=== PATIENT | male | born 1985 | race Caucasian/White ===

== ENCOUNTER 2017-09-01 10:11 | Emergency (ER) | payer MEDICAID ==
[~2017-09-01] VITALS: Ht 177.8 cm; Wt 86.2 kg
[2017-09-01 10:42] VITALS: BP 135/85
[2017-09-01] MEDS ORDERED: KETOROLAC TROMETH 60MG/2ML VIAL IM ONE (11:15)
[2017-09-01] MEDS ORDERED: cefTRIAXone SOD 1,000 MG VL IM ONE (11:15)
== END 2017-09-01 11:43 | disposition home or self-care (01) ==
LOC: ER 10:11
DX: L03.211 Cellulitis of face (principal); K02.9 Dental caries, unspecified; F17.200 Nicotine dependence, unspecified, uncomplicated; F12.10 Cannabis abuse, uncomplicated; F15.10 Other stimulant abuse, uncomplicated
CPT/HCPCS: 96372; 99284; J0696; J1885

== ENCOUNTER 2018-05-14 10:14 | Emergency (ER) | payer MEDICAID ==
[~2018-05-14] VITALS: Ht 177.8 cm; Wt 83.9 kg
[2018-05-14 10:21] VITALS: BP 124/84
== END 2018-05-14 11:39 | disposition left against medical advice (07) ==
LOC: ER 10:14
DX: R07.81 Pleurodynia (principal); Z53.21 Procedure and treatment not carried out due to patient leaving prior to being seen by health care provider

== ENCOUNTER 2022-06-07 09:49 | Emergency (ER) | payer MEDICAID | END 2022-06-07 10:00 | disposition left against medical advice (07) | LOC: ER 09:49 | DX: Z00.00 Encounter for general adult medical examination without abnormal findings (principal); Z53.21 Procedure and treatment not carried out due to patient leaving prior to being seen by health care provider; Y09 Assault by unspecified means; Y93.89 Activity, other specified; Y92.89 Other specified places as the place of occurrence of the external cause; Y99.8 Other external cause status ==

== ENCOUNTER 2024-11-13 15:13 | Emergency (ER) | payer MEDICAID ==
[~2024-11-13] VITALS: Ht 175.3 cm; Wt 109.8 kg
[~2024-11-13 15:13] MED LIST: DIPH25TA54 PO; METH4PAK PO
[2024-11-13] MEDS: KETOROLAC TROMETH 60MG/2ML VIAL IM ONE (15:30)
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
[2024-11-13 16:01] LABS: Urine Bacteria None Seen /hpf (None Seen)
--- NOTE | 2024-11-13 16:03 | DVH ---
ULTRASOUND OF SCROTUM AND CONTENTS. INDICATION: Testicular pain and swelling COMPARISON: None TECHNIQUE: Multiple real-time grayscale sonographic and color and duplex Doppler images of the scrotu m and its contents were obtained. FINDINGS: RIGHT TESTICLE: Measures 3.9 x 2.6 x 2.7 cm. Right epididymis measures 13.4 mm LEFT TESTICLE: Measures 3.9 x 2.5 x 3.2 cm. Septated left hydrocele. Increased scrotal wall thickening measuring 2.2 cm. Both testicles demonstrate homogeneous echotexture without evidence of focal lesions. The right epididymal head measures 13.4 mm cm. The left epididymal head measures 10 mm cm. Subsequent color and duplex Doppler interrogation of the testes demonstrated symmetric normal vascula r flow to both testicles. No focal areas of hyperemia were seen. IMPRESSION: 1. Right testicle measures 3.9 cm long. Left testicle measures 3.9 cm long. 2. Right epididymis measures 13.4 mm ; left epididymis measures 10 mm. 3. Septated hydrocele on the left. Scrotal wall thickening measuring 2.2 cm.
[2024-11-13 16:07] VITALS: BP 128/69; PULSE 105; RESP 20; TEMP 97.2; O2SAT 97
[2024-11-13 16:10] LABS: Urine Blood Negative /uL (Negative); Urine Clarity Clear (Clear); Urine Color Yellow (Yellow); Urine Protein, UAD TRACE (Negative); Urine Specific Gravity 1.027 (1.001-1.035); Urine Sperm PRESENT /hpf (None Seen); Urine Squamous Epithelial Cell None Seen /hpf (<5); Urine Urobilinogen Normal (Negative); Urine WBC 1 /HPF (0-3)
[2024-11-13] MEDS ORDERED: TRAM50TA2 PO (16:38)
[2024-11-13] MEDS ORDERED: IBUP-1455 PO (16:38)
== END 2024-11-13 16:45 | disposition home or self-care (01) ==
LOC: ER 15:13
DX: N43.3 Hydrocele, unspecified (principal); F17.210 Nicotine dependence, cigarettes, uncomplicated; F15.90 Other stimulant use, unspecified, uncomplicated; Z79.899 Other long term (current) drug therapy
CPT/HCPCS: 76870; 81001; 96372; 99285; J1885

== ENCOUNTER 2025-08-02 08:10 | Emergency (ER) | payer MEDICAID ==
[~2025-08-02] VITALS: Ht 175.3 cm; Wt 103.0 kg
[~2025-08-02 08:10] MED LIST changes: +IBUP-1455 PO; +TRAM50TA2 PO
--- NOTE | 2025-08-02 09:50 | DVH ---
CHEST RADIOGRAPH Indication: R/o serious pathology Technique: Single frontal view of the chest was obtained COMPARISON: None FINDINGS: Lines and Tubes: None Lungs: Clear Pleura: No effusion. No pneumothorax. Cardiomediastinal contours: Unremarkable Bones: Unremarkable IMPRESSION: No acute disease.
[2025-08-02 09:56] LABS: Hematocrit 44.4 % (41.0-53.0); Hemoglobin 14.8 g/dL (13.5-17.5); Mean Corpuscular Hemoglobin 29.2 pg (28.0-32.0); Mean Corpuscular Volume 87.6 fL (80.0-100.0); Nucleated Red Blood Cells % 0.0 %
[2025-08-02 09:58] LABS: Chloride 106 mmol/L (98-107); Sodium 145 mmol/L (136-145)
[2025-08-02 09:59] LABS: Anion Gap 14 (5-15); Calcium 9.6 mg/dL (8.7-10.4); Carbon Dioxide 25 mmol/L (20-31)
[2025-08-02 10:04] LABS: BUN/Creatinine Ratio 14.6 (10.0-20.0); Blood Urea Nitrogen 18 mg/dL (9-23)
[2025-08-02 10:09] LABS: Glucose 112 mg/dL (74-106); Potassium 3.4 mmol/L (3.5-5.1)
--- NOTE | 2025-08-02 10:39 | ED.PDOC ---
Musculoskeletal HPI Comments This is a pleasant 40-year-old that presents with a muscle cramps x1 day. Reports he is experiencing muscle cramps in his bilateral hands possibly after the discontinuation of Suboxone 36 hours ago. Reports that his hands cramp suddenly with no specific pattern. The patient tried taking [id number] magnesium pills and eating bananas with some improvement. He has a history of methamphetamine use and was prescribed Suboxone for meth cravings while in custody at [facility] and reports he was on Suboxone for 14 days. Two weeks ago with the patient experienced chest pain while in custody but did not seek medical attention due to the inconvenience of being transported and chains. He does have a family history of heart attacks from his father's side. The patient is also requesting to be screen for hepatitis and HIV due to IV drug use. Chief Complaint: Upper Extremity Time Seen by MD: 08:20 Primary Care Provider: NONE Reviewed Notes: Nurses Notes, Medications, Allergies Allergies: Coded Allergies: NO KNOWN ALLERGIES (Unverified , 09/01/17) Home Meds Active Scripts Tramadol Hcl (Tramadol Hcl) 50 Mg Tab, 50 MG PO Q8HP PRN, #12 TAB Prov:WATSON BUSTOS PAC 11/13/ Ibuprofen Micronized (Ibuprofen) 800 Mg Tab, 800 MG PO Q8HP PRN, #20 TAB Prov:WATSON BUSTOS PAC 11/13/25 Diphenhydramine Hcl (Benadryl Allergy) 25 Mg Tab, 25 MG PO BID for 3 Days, #6 TAB Prov:HENRY GARDINER MD 09/02/24 Methylprednisolone (Medrol Dosepak) 4 Mg Neymar, 4 MG PO UD, #21 TAB UAD Prov:HENRY GARDINER MD 09/02/24 Information Source: Patient Mode of Arrival: Ambulatory Past Medical History PAST MEDICAL HISTORY: Denies Surgical History: Denies all surgeries Family History Family History: Reviewed,noncontributory to illness Social History Smoker: Cigarettes, Less Than 1 Pack/Day Alcohol: Denies ETOH Use Drugs: Marijuana, Methamphetamine Lives In: Home All Other Systems: Reviewed and Negative (per hpi) Physical Exam General Appearance: No Apparent Distress, Normal HEENT: Normal ENT Inspection, Pharynx Normal, TMs Normal Neck: Full Range of Motion, Non-Tender, Normal, Normal Inspection Respiratory: Chest Non-Tender, Lungs Clear, No Accessory Muscle Use, No Respiratory Distress, Normal Breath Sounds Cardiovascular: No JVD (e 10/28 having some lifting), No Murmur, No Gallop, Regular Rate/Rhythm Breast Exam: Deferred Gastrointestinal: No Organomegaly, Non Tender, No Pulsatile Mass, Normal Bowel Sounds, Soft Genitalia: Deferred Pelvic: Deferred Rectal: Deferred Extremities: No calf tenderness, Normal capillary refill, Normal inspection, Normal range of motion, Non-tender, No pedal edema Musculoskeletal : Apperance: Normal Neurologic: Alert, superintendent production II-XII nml as Tested, No Motor Deficits, Normal Affect, Normal Mood, No Sensory Deficits Cerebellar Function: Normal Reflexes: Normal Skin: Dry, Normal Color, Warm Lymphatic: No Adenopathy Was a procedure done? Was a procedure done?: No Differential Diagnosis EXT Differential Diagnosis: Other X-Ray, Labs, Meds, VS Vital Signs Date Time Temp Pulse Resp B/P (MAP) Pulse Ox O2 Delivery O2 Flow Rate FiO2 08/02/25 08:12 97.9 63 16 148/97 100 97.9 Lab Test 08/02/25 09:37 Range/Units White Blood Count 15.1 H 4.4-10.8 10^3/uL Red Blood Count 5.07 4.5-5.90 10^6/uL Hemoglobin 14.8 13.5-17.5 g/dL Hematocrit 44.4 41.0-53.0 % Mean Corpuscular Volume 87.6 80.0-100.0 fL Mean Corpuscular Hemoglobin 29.2 28.0-32.0 pg Mean Corpuscular Hemoglobin Concent 33.3 32.0-36.0 g/dL Red Cell Distribution Width 13.6 11.8-14.3 % Platelet Count 253 140-450 10^3/uL Mean Platelet Volume 9.8 6.9-10.8 fL Neutrophils (%) (Auto) 77.8 37.0-80.0 % Lymphocytes (%) (Auto) 14.1 10.0-50.0 % Monocytes (%) (Auto) 8.0 0.0-12.0 % Eosinophils (%) (Auto) 0.0 0.0-7.0 % Basophils (%) (Auto) 0.1 0.0-2.0 % Neutrophils # (Auto) 11.7 H 1.6-8.6 10 ^3/uL Lymphocytes # (Auto) 2.1 0.4-5.4 10 ^3/uL Monocytes # (Auto) 1.2 0-1.3 10 ^3/uL Eosinophils # (Auto) 0 0-0.8 10 ^3/uL Basophils # (Auto) 0 0-0.2 10 ^3/uL Nucleated Red Blood Cells 0.0 % Sodium Level 145 136-145 mmol/L Potassium Level 3.4 L 3.5-5.1 mmol/L Chloride Level 106 98-107 mmol/L Carbon Dioxide Level 25 20-31 mmol/L Anion Gap 14 5-15 Blood Urea Nitrogen 18 9-23 mg/dL Creatinine 1.23 0.700-1.30 mg/dL Glomerular Filtration Rate Calc 76 >90 mL/min BUN/Creatinine Ratio 14.6 10.0-20.0 Serum Glucose 112 H 74-106 mg/dL Calcium Level 9.6 8.7-10.4 mg/dL Troponin I High Sensitivity 20 </=54 ng/L Hepatitis B Surface Antigen Pending Hepatitis B Surface Antibody Pending Hepatitis C Antibody Pending HIV (1&2) Antibody Pending X-Ray, Labs, Meds, VS Comment Patient is stable for discharge at this time. External notes reviewed. Test results and diagnostic imaging interpreted. All diagnostic findings, discharge care, education and instructions provided Follow-up with PCP in 2 to 3 days Patient verbalized understanding and agreed to treatment plan Vital signs stable, afebrile, no acute distress noted Patient ambulatory with strong steady gait Advised to return precautions for any new or worsening symptoms, return to ER immediately for re-evaluation Patient is aware that the purpose of this visit was for an acute medical emergency requiring emergent stabilization. Chronic conditions, including malignancies have not been ruled out. Patient is instructed to follow up with PCP as directed and discharge instructions for continued care and workup. If unable to arrange follow-up, patient is to return to the emergency department for reassessment. Patient (parent or legal guardian if applicable) was given verbal and written discharge instructions and acknowledges understanding. Time of 1ST Reevaluation: 10:30 Reevaluation 1ST: Improved Patient Education/Counseling: Diagnosis, Treatment Family Education/Counseling: Diagnosis, Treatment Departure 1 Departure Time of Disposition: 10:39 Impression: Primary Impression: Musculoskeletal pain Disposition: 01 HOME / SELF CARE / HOMELESS Condition: Stable Discharged With: Self Critical Care Note Critical Care Time?: No Stability Stability form required: No Heart Score Heart Score: Heart Score Response (Comments) Value History N/A 0 EKG N/A 0 Age N/A 0 Risk Factors N/A 0 Troponin N/A 0 Total 0 LEROY BUSCH NP Aug 02, 2025 10:39
[2025-08-02 10:55] VITALS: BP 136/98; PULSE 78; RESP 17; TEMP 98.2; O2SAT 99
[2025-08-02 11:08] LABS: Hepatitis B Surface Antigen Negative (Negative)
== END 2025-08-02 10:58 | disposition home or self-care (01) ==
LOC: ER 08:10
DX: M79.18 Myalgia, other site (principal); R25.2 Cramp and spasm; F17.210 Nicotine dependence, cigarettes, uncomplicated
CPT/HCPCS: 36415; 71045; 80048; 84484; 85025; 86703; 86706; 86803; 87340

== ENCOUNTER 2025-08-14 11:21 | Inpatient (IN) | payer MEDICAID ==
[~2025-08-14] VITALS: Ht 172.7 cm; Wt 90.0 kg
--- NOTE | 2025-08-14 11:40 | ED.PDOC ---
HPI Allergic reaction HPI Comments 40 y.o male presents to the ED for an evaluation of an allergic reaction. Patient reports smoking methamphetamine earlier this morning and later developed facial swelling to the left side. Patient states taking a nap and when he woke up, ate some eggs and swelling across his face and lips. Patient did have some difficulty swallowing but denies any at this time. He mentions same reaction x 5 separate times after using methamphetamine but one episode was without substance use. He denies any medication use at this time. Additionally mentions using marijuana. He denies any cough, cold, runny nose, fever or chills. Chief Complaint: Allergic Reaction Time Seen by MD: 12:45 Primary Care Provider: NONE Reviewed Notes: Nurses Notes, Medications, Allergies Allergies: Coded Allergies: Cephalexin (Verified Allergy, Unknown, 08/14/25) Home Meds Active Scripts Tramadol Hcl (Tramadol Hcl) 50 Mg Tab, 50 MG PO Q8HP PRN, #12 TAB Prov:WATSON BUSTOS PAC 11/13/24 Ibuprofen Micronized (Ibuprofen) 800 Mg Tab, 800 MG PO Q8HP PRN, #20 TAB Prov:WATSON BUSTOS PAC 11/13/24 Diphenhydramine Hcl (Benadryl Allergy) 25 Mg Tab, 25 MG PO BID for 3 Days, #6 TAB Prov:HENRY GARDINER MD 09/02/24 Methylprednisolone (Medrol Dosepak) 4 Mg Neymar, 4 MG PO UD, #21 TAB UAD Prov:HENRY GARDINER MD 09/02/24 Information Source: Patient Mode of Arrival: Ambulatory Severity: Moderate Rash: None Pruritus: None Timing: Hours Duration: Since onset Location: Face Exposed to: Unknown Developed: Facial Swelling History of: None Modyifying Factors: None Associated Sign and Symptoms: Other Past Medical History PAST MEDICAL HISTORY: Denies Surgical History: Denies all surgeries Family History Family History: Reviewed,noncontributory to illness Social History Smoker: Cigarettes, Less Than 1 Pack/Day Alcohol: Denies ETOH Use Drugs: Marijuana, Methamphetamine Lives In: Home Constitutional: denies: chills, diaphoresis, fatigue, fever, malaise, sweats, weakness, others EENTM: denies: blurred vision, double vision, ear bleeding, ear discharge, ear drainage, ear pain, ear ringing, eye pain, eye redness, hearing loss, mouth pain, mouth swelling, nasal discharge, nose bleeding, nose congestion, nose pain, photophobia, tearing, throat pain, throat swelling, voice changes, others Respiratory: denies: cough, hemoptysis, orthopnea, SOB at rest, shortness of breath, SOB with excertion, stridor, wheezing, others Cardiovascular: denies: chest pain, dizzy spells, diaphoresis, Dyspnea on exertion, edema, irregular heart beat, left arm pain, lightheadedness, palpitations, PND, syncope, others Gastrointestinal: denies: abdomen distended, abdominal pain, blood streaked bowels, constipated, diarrhea, dysphagia, difficulty swallowing, hematemesis, melena, nausea, poor appetite, poor fluid intake, rectal bleeding, rectal pain, vomiting, others Genitourinary: denies: burning, dysuria, flank pain, frequency, hematuria, incontinence, penile discharge, penile sore, pain, testicle pain, testicle swelling, urgency, others Neurological: denies: dizziness, fainting, headache, left sided numbness, left sided weakness, numbness, paresthesia, pre-existing deficit, right sided numbness, right sided weakness, seizure, speech problems, tingling, tremors, weakness, others Musculoskeletal: denies: back pain, gout, joint pain, joint swelling, muscle pain, muscle stiffness, neck pain, others Integumetry: denies: bruises, change in color, change in hair/nails, dryness, laceration, lesions, lumps, rash, wounds, others Allergic/Immunocompromised: reports: others (facial swelling ); denies: Difficulty Healing, Frequent Infections, Hives, Itching Hematologic/Lymphatic: denies: anemia, blood clots, easy bleeding, easy bruising, swollen glands, others Endocrine: denies: excessive hunger, excessive sweating, excessive thirst, excessive urination, flushing, intolerance to cold, intolerance to heat, unexplained weight gain, unexplained weight loss, others Psychiatric: denies: anxiety, bipolar disorder, depression, hopeless, panic disorder, schizophrenia, sleepless, suicidal, others All Other Systems: Reviewed and Negative Physical Exam Exam Comments Full face swelling worse to the left face. Left cheek and left lips completely swollen. Right cheek very swollen including the entire jaw. Positive lip swelling. General Appearance: Severe Distress HEENT: Other (Full face swelling worse to the left face. Left cheek and left lips completely swollen. Right cheek very swollen including the entire jaw. Po sitive lip swelling. No tongue swelling) Neck: Full Range of Motion, Non-Tender, Normal, Normal Inspection Respiratory: No Respiratory Distress, Normal Breath Sounds Cardiovascular: Normal Peripheral Pulses, Tachycardia Breast Exam: Deferred Gastrointestinal: No Organomegaly, Non Tender, No Pulsatile Mass, Normal Bowel Sounds, Soft Genitalia: Deferred Pelvic: Deferred Rectal: Deferred Extremities: No calf tenderness, Normal capillary refill, Normal inspection, Normal range of motion, Non-tender, No pedal edema Musculoskeletal : Apperance: Normal Neurologic: Alert, No Motor Deficits, Normal Affect, Normal Mood, No Sensory Deficits Cerebellar Function: Normal Reflexes: Normal Skin: Dry, Normal Color, Warm Lymphatic: No Adenopathy Was a procedure done? Was a procedure done?: No Differential diagnosis (all) Differential Diagnosis: Anaphylaxis, Angioedema, Bronchospasm, Contact Dermatitis, Drug Reaction, Urticaria X-Ray, Labs, Meds, VS Vital Signs Date Time Temp Pulse Resp B/P (MAP) Pulse Ox O2 Delivery O2 Flow Rate FiO2 08/14/25 12:05 110 20 116/77 (90) 97 08/14/25 12:05 110 20 97 Room Air 08/14/25 11:27 98.0 113 18 122/80 97 98.0 Lab Test 08/14/25 13:10 Range/Units White Blood Count 9.3 4.4-10.8 10^3/uL Red Blood Count 4.72 4.5-5.90 10^6/uL Hemoglobin 14.2 13.5-17.5 g/dL Hematocrit 41.9 41.0-53.0 % Mean Corpuscular Volume 88.7 80.0-100.0 fL Mean Corpuscular Hemoglobin 30.1 28.0-32.0 pg Mean Corpuscular Hemoglobin Concent 33.9 32.0-36.0 g/dL Red Cell Distribution Width 14.3 11.8-14.3 % Platelet Count 269 140-450 10^3/uL Mean Platelet Volume 9.1 6.9-10.8 fL Neutrophils (%) (Auto) 70.1 37.0-80.0 % Lymphocytes (%) (Auto) 22.1 10.0-50.0 % Monocytes (%) (Auto) 6.4 0.0-12.0 % Eosinophils (%) (Auto) 1.1 0.0-7.0 % Basophils (%) (Auto) 0.3 0.0-2.0 % Neutrophils # (Auto) 6.6 1.6-8.6 10 ^3/uL Lymphocytes # (Auto) 2.1 0.4-5.4 10 ^3/uL Monocytes # (Auto) 0.6 0-1.3 10 ^3/uL Eosinophils # (Auto) 0.1 0-0.8 10 ^3/uL Basophils # (Auto) 0 0-0.2 10 ^3/uL Nucleated Red Blood Cells 0.1 % Sodium Level 142 136-145 mmol/L Potassium Level 3.6 3.5-5.1 mmol/L Chloride Level 113 H 98-107 mmol/L Carbon Dioxide Level 22 20-31 mmol/L Anion Gap 7 5-15 Blood Urea Nitrogen 9 9-23 mg/dL Creatinine 1.08 0.700-1.30 mg/dL Glomerular Filtration Rate Calc 89 >90 mL/min BUN/Creatinine Ratio 8.3 L 10.0-20.0 Serum Glucose 129 H 74-106 mg/dL Calcium Level 9.1 8.7-10.4 mg/dL Current Medications Medications (Trade) Dose Ordered Sig/Jenna Route Start Time Stop Time Status Last Admin Dexamethasone Sodium Phosphate (Decadron Injection) 10 mg ONCE ONCE IV 08/14/25 12:00 08/14/25 12:02 DC 08/14/25 12:13 Diphenhydramine HCl (Benadryl Injection) 50 mg ONCE ONCE IV 08/14/25 12:00 08/14/25 12:02 DC 08/14/25 12:13 Famotidine (Pepcid Injection) 40 mg ONCE ONCE IV 08/14/25 12:00 08/14/25 12:02 DC 08/14/25 12:13 Patient is seen immediately upon his arrival by myself. Nursing staff ap proached me regarding his significant swelling. At this time patient has a fullface swelling to the left side of his face and significant swelling to the right cheek and right lower face. Patient is tachycardic at a proximally 113. However blood pressure is stable. At this time he reports mild difficulty breathing only. There was lip swelling but there was no tongue swelling. At this time patient states he does not know what caused this. He states this is occurred some 5-6 times. Patient immediately given dexamethasone Benadryl and Pepcid IV. Patient currently not on any medications. He states he uses methamphetamine but no other medications that could be the cause of his symptoms today. He states this morning he woke up and it was most swollen and then he ate aches and became even more swollen. On re-evaluation of the patient at 12:50 p.m., swelling has decreased but con tinues to be very swollen still. At this time I believe patient would benefit from inpatient observation and admission. I have ordered a CBC BMP which are within normal limits.. Hospitalist team has been contacted for admission. Time of 1ST Reevaluation: 12:50 Reevaluation 1ST: Improved Patient Education/Counseling: Diagnosis, Treatment, Prognosis Family Education/Counseling: No Family Present SEPSIS Sepsis Screen Date sepsis recognized/suspect: Aug 14, 2025 Time Sepsis recognized/suspect: 1134 Recent Procedure: No On Antibiotic Therapy: No Respiratory Rate >20: No Heart Rate >90: Yes Temp<36 C (96.8 F) or >38.3 C: No SBP <90 or MAP <65 mmHG: No New Acute Mental Status Change: No Is the patient on CPAP, BIPAP,: No Vital Signs Date Time Temp Pulse Resp B/P (MAP) Pulse Ox O2 Delivery O2 Flow Rate FiO2 08/14/25 12:05 110 20 116/77 (90) 97 08/14/25 12:05 110 20 97 Room Air 08/14/25 11:27 98.0 113 18 122/80 97 98.0 Laboratory Tests Test 08/14/25 13:10 White Blood Count 9.3 10^3/uL (4.4-10.8) Medications Medications Dose Ordered Sig/Jenna Route Start Time Stop Time Status Last Admin Dose Admin Dexamethasone Sodium Phosphate 10 mg ONCE ONCE IV 08/14/25 12:00 08/14/25 12:02 DC 08/14/25 12:13 Diphenhydramine HCl 50 mg ONCE ONCE IV 08/14/25 12:00 08/14/25 12:02 DC 08/14/25 12:13 Famotidine 40 mg ONCE ONCE IV 08/14/25 12:00 08/14/25 12:02 DC 08/14/25 12:13 Departure 1 Departure Time of Disposition: 12:54 Impression: Primary Impression: Angio-edema Qualified Codes: T78.3XXA - Angioneurotic edema, initial encounter Additional Impression: Allergic reaction Qualified Codes: T78.40XA - Allergy, unspecified, initial encounter Disposition: ADMITTED INPATIENT Condition: Fair Discharged With: Self Critical Care Note Critical Care Time?: Yes (45 min-critical care time only) Critical care comment: Patient required immediate attention. Multiple re-evaluations concern for acute anaphylaxis and concern for immediate respiratory decline. Time spent re- evaluating the patient, speaking to nursing staff, managing the patient in his care, speaking to hospitalist team Stability Stability form required: No Heart Score Heart Score: Heart Score Response (Comments) Value History N/A 0 EKG N/A 0 Age N/A 0 Risk Factors N/A 0 Troponin N/A 0 Total 0 I personally scribed for KATIE SALINAS MD ([email or web address]) on 08/14/25 at 11:40. Electronically submitted by Ronda Bullock ([facility]). I personally scribed for KATIE SALINAS MD ([email or web address]) on 08/14/25 at 12:50. Electronically submitted by Ronda Bullock ([facility]). KATIE SALINAS MD Aug 14, 2025 11:40
[2025-08-14] MEDS: diphenhydrAMINE HCL 50 MG/1 ML VL IV ONE (12:13)
[2025-08-14] MEDS: FAMOTIDINE (10MG/ML) 2ML VL IV ONE (12:13)
[2025-08-14 13:28] LABS: Hematocrit 41.9 % (41.0-53.0); Hemoglobin 14.2 g/dL (13.5-17.5); Mean Corpuscular Hemoglobin 30.1 pg (28.0-32.0); Mean Corpuscular Volume 88.7 fL (80.0-100.0); Nucleated Red Blood Cells % 0.1 %
[2025-08-14 13:39] LABS: Potassium 3.6 mmol/L (3.5-5.1); Sodium 142 mmol/L (136-145)
[2025-08-14 13:40] LABS: Anion Gap 7 (5-15); Carbon Dioxide 22 mmol/L (20-31)
[2025-08-14 13:41] LABS: Calcium 9.1 mg/dL (8.7-10.4)
[2025-08-14 13:45] LABS: BUN/Creatinine Ratio 8.3 (10.0-20.0); Blood Urea Nitrogen 9 mg/dL (9-23)
[2025-08-14 13:57] LABS: Chloride 113 mmol/L (98-107); Glucose 129 mg/dL (74-106)
[2025-08-14 20:50] VITALS: BP 138/88; PULSE 122; RESP 20; TEMP 98; O2SAT 100
[2025-08-14] MEDS ORDERED: MORPHINE SULFATE INJ 2 MG/ml SYRG IV PRN (23:45)
[2025-08-14] MEDS ORDERED: NITROGLYCERIN 0.4 MG SL TAB SL PRN (23:45)
[2025-08-15] MEDS ORDERED: DOCUSATE SOD 100 MG CAP PO PRN (02:15)
[2025-08-15] MEDS ORDERED: ONDANSETRON HCL 4 MG/2 ML VIAL IV PRN (02:15)
[2025-08-15] MEDS ORDERED: ACETAMINOPHEN 325 MG TAB PO PRN (02:15)
[2025-08-15] MEDS ORDERED: diphenhydrAMINE HCL 50 MG/1 ML VL IV PRN (02:15)
[2025-08-15] MEDS ORDERED: SODIUM CHLORIDE 0.9% 1,000 ML IV SCH (02:15)
--- NOTE | 2025-08-15 02:16 | DVHHPRES ---
History of Present Illness Resident Creating Document: TABITHA HALE RESIDENT History of Present Illness The patient is a 40-year-old male with history of hepatitis C (treated), anxiety, IV methamphetamine use, and prior episodes of facial swelling, who presents to the ED with acute facial swelling and throat tightness concerning for allergic reaction with angioedema. He reports using IV methamphetamine around 3:30 AM today. He went home and slept. When he woke up around 9:00 AM, he noticed swelling involving the left cheek and left side of his lips. He then ate eggs, after which the swelling rapidly worsened, spreading to involve both lips, left cheek up toward the infraorbital area, and later the right cheek/lower face. He describes the swelling as tight, watery, mildly painful, and itchy over the face. He also reports mild throat tightness and mild dysphagia (able to swallow saliva but feels tight in the throat) and very mild chest tightness, but denies brianna shortness of breath, noisy breathing, wheezing, stridor, drooling, or inability to handle secretions. He denies rash elsewhere on the body, tongue swelling, hand/foot/genital swelling, and denies nausea, vomiting, abdominal pain, or diarrhea. No fever or chills. This is his 6th episode of similar facial swelling: * 5 episodes occurred in temporal association with methamphetamine use (within the same day). * 1 episode occurred during incarceration after receiving Suboxone (buprenorphinenaloxone). * He was admitted once previously for similar swelling but reports no prior intubation or ICU stay. * Symptoms previously improved with steroids and diphenhydramine. He reports a known allergy to Keflex (cephalexin) . He is not on any OUSMANE inhibitor, ARB, or other chronic medications. He occasionally uses tramadol, ibuprofen, Tylenol, and diphenhydramine for pain or symptoms, but no daily medications. On ED presentation, nursing staff noted marked left hemifacial swelling and significant swelling of the right cheek and lower face, with lip swelling but no tongue swelling. He was tachycardic to ~284711 bpm, normotensive (BP ~138/88 mmHg), afebrile, and saturating 100% on room air. He complained of mild throat tightness and chest tightness but could speak in full sentences without stridor. He was treated emergently with: * IV dexamethasone * IV diphenhydramine (Benadryl) * IV famotidine (Pepcid) Following treatment, he reports the facial swelling has improved significantly (down to about one-third of what it was), and the throat tightness is still present but slightly better. No new symptoms have developed. Given: * Recurrent angioedema episodes (x6), * Association with IV methamphetamine and Suboxone exposure, * Concurrent throat tightness and mild dysphagia, * Current need for ongoing serial airway exams and risk of progression to laryngeal edema/anaphylaxis, the patient is being admitted from the ED to inpatient medicine (telemetry/step- down level) for close airway monitoring, continued antihistamine/steroid therapy, evaluation for underlying angioedema (including possible drug-induced vs idiopathic vs hereditary vs food-triggered), and addiction and allergy/immunology consultation. Past Medical History * Hepatitis C virus infection treated with Harvoni; reports sustained virologic response (no current active HCV by history). * Anxiety disorder. * Recurrent allergic reaction/angioedema episodes (x6 by history). * No known asthma, eczema, autoimmune disease, thyroid disease, or hereditary angioedema diagnosis. Past Surgical History * Denies prior surgeries. Family History * No known family history of angioedema, anaphylaxis, or autoimmune disease. * No known hereditary angioedema in relatives by patient report. Past Social History * Lives with his mother. * Tobacco: ~ pack per day of cigarettes. * Illicit drugs: * IV methamphetamine use (episodic; last use at ~3:30 AM on day of admission). * Marijuana use (smoked). * Denies cocaine, heroin, or non-prescribed pills. * Alcohol: denies current ethanol use. * No occupational exposures clearly identified. Review of Systems Review of Systems * General: Denies fever, chills, night sweats, weight loss. * HEENT: +Facial swelling (bilateral cheeks, lips, L>R). +Throat tightness. +Mild facial itching. Denies tongue swelling, drooling, hoarseness, visual changes, ear pain, rhinorrhea, sinus pain. * Respiratory: Denies brianna shortness of breath, cough, wheezing, stridor, hemoptysis. * Cardiovascular: +Mild chest tightness; denies chest pain, palpitations, syncope. * GI: Denies nausea, vomiting, abdominal pain, diarrhea, melena, hematochezia. * : Denies dysuria, hematuria, flank pain, testicular pain or swelling currently. * Skin: Denies generalized rash or hives; itching localized to face. * Neuro: Denies headache, focal weakness, numbness, confusion. * Psych: Admits to history of anxiety; denies current suicidal ideation or hallucinations. * MSK: Denies joint swelling or myalgias. * Endocrine: Denies polyuria, polydipsia, heat or cold intolerance. * Heme/Onc: Denies easy bruising, bleeding, or known malignancy. * Allergic/Immunologic: Recurrent facial swelling episodes associated with meth and once with Suboxone; known Keflex allergy. Allergies: Coded Allergies: Cephalexin (Verified Allergy, Unknown, 08/14/25) Exam Vital Signs Vital Signs Date Time Temp Pulse Resp B/P (MAP) Pulse Ox O2 Delivery O2 Flow Rate FiO2 08/14/25 20:50 98.0 122 20 138/88 (105) 100 98.0 08/14/25 12:05 Room Air Exam General: Awake, alert, oriented x3, anxious but cooperative, speaking in full sentences, mild discomfort due to facial tightness; no acute respiratory distress. HEENT: * Head/Face: Notable left hemifacial swelling extending from perioral to infraorbital region, and moderate swelling over right cheek and lower face, somewhat improved compared to ED arrival by patient report. Mild overlying erythema; no warmth, no fluctuance; non-tender to palpation, feels tight to patient. * Lips: Bilateral lip edema, more pronounced on left; no ulcerations, no cyanosis. * Oral cavity: No tongue swelling, mucosa moist, no oral lesions, no pooling of secretions. Uvula midline, no obvious uvular edema, posterior oropharynx patent without exudate. * Throat: Patient reports mild tightness, but can swallow secretions; no drooling. * Eyes: No conjunctival injection or chemosis; no periorbital ecchymosis. * Ears/Nose: External ears normal. Nasal passages patent; no discharge. Neck: Supple, trachea midline, no stridor, no anterior neck swelling, no submandibular [id number] elevation, no cervical or submandibular lymphadenopathy, no tenderness or fluctuance. Full ROM without pain. Respiratory: Breathing unlabored. Lungs clear to auscultation bilaterally; no wheezes, rales, rhonchi, or stridor. No use of accessory muscles. Cardiovascular Tachycardic, regular rhythm, no murmurs, rubs, or gallops. Peripheral pulses 2+ bilaterally. No peripheral edema. Capillary refill <2 seconds. Abdomen: Soft, non-distended, non-tender. No guarding or rebound. Bowel sounds present. Extremities: No edema, no rash, no urticaria, no tenderness. Skin: Warm, dry. Facial area with edema as above; no generalized rash, urticaria, or flushing on trunk or extremities. Neurologic: Alert and oriented, moves all extremities spontaneously, cranial nerves IIXII grossly intact, no focal deficits. Psychiatric: Appropriate affect, anxious but logical and coherent, good insight into illness. Denies suicidal ideation. Labs/Xrays Labs Test 08/14/25 13:10 Range/Units White Blood Count 9.3 4.4-10.8 10^3/uL Red Blood Count 4.72 4.5-5.90 10^6/uL Hemoglobin 14.2 13.5-17.5 g/dL Hematocrit 41.9 41.0-53.0 % Mean Corpuscular Volume 88.7 80.0-100.0 fL Mean Corpuscular Hemoglobin 30.1 28.0-32.0 pg Mean Corpuscular Hemoglobin Concent 33.9 32.0-36.0 g/dL Red Cell Distribution Width 14.3 11.8-14.3 % Platelet Count 269 140-450 10^3/uL Mean Platelet Volume 9.1 6.9-10.8 fL Neutrophils (%) (Auto) 70.1 37.0-80.0 % Lymphocytes (%) (Auto) 22.1 10.0-50.0 % Monocytes (%) (Auto) 6.4 0.0-12.0 % Eosinophils (%) (Auto) 1.1 0.0-7.0 % Basophils (%) (Auto) 0.3 0.0-2.0 % Neutrophils # (Auto) 6.6 1.6-8.6 10 ^3/uL Lymphocytes # (Auto) 2.1 0.4-5.4 10 ^3/uL Monocytes # (Auto) 0.6 0-1.3 10 ^3/uL Eosinophils # (Auto) 0.1 0-0.8 10 ^3/uL Basophils # (Auto) 0 0-0.2 10 ^3/uL Nucleated Red Blood Cells 0.1 % Sodium Level 142 136-145 mmol/L Potassium Level 3.6 3.5-5.1 mmol/L Chloride Level 113 H 98-107 mmol/L Carbon Dioxide Level 22 20-31 mmol/L Anion Gap 7 5-15 Blood Urea Nitrogen 9 9-23 mg/dL Creatinine 1.08 0.700-1.30 mg/dL Glomerular Filtration Rate Calc 89 >90 mL/min BUN/Creatinine Ratio 8.3 L 10.0-20.0 Serum Glucose 129 H 74-106 mg/dL Calcium Level 9.1 8.7-10.4 mg/dL SEPSIS Sepsis Screen Date sepsis recognized/suspect: Aug 14, 2025 Time Sepsis recognized/suspect: 2050 Recent Procedure: No On Antibiotic Therapy: No Respiratory Rate >20: No Heart Rate >90: Yes Temp<36 C (96.8 F) or >38.3 C: No SBP <90 or MAP <65 mmHG: No New Acute Mental Status Change: No Is the patient on CPAP, BIPAP,: No Physician Orders Admit (08/14/25 23:37) Patient Condition (08/14/25 23:37) Oxygen By Nasal Cannula (08/14/25 23:37) Code Status (08/15/25 02:02) 0.9% Ns 1000 Ml (08/15/25 02:15) Oxygen Per Hour (08/15/25 02:02) Ondansetron Hcl (Zofran) (08/15/25 02:15) Docusate Sodium Capsule (Colace Capsule) (08/15/25 02:15) Enoxaparin Sodium (Lovenox) (08/15/25 10:00) Complete Blood Count (08/16/25 04:00) Comprehensive Metabolic Panel (08/16/25 04:00) Npo (Nothing By Mouth) Diet (08/15/25 Breakfast) Condition: Unstable (08/15/25 02:02) Acetaminophen Tablet (Tylenol Tablet) (08/15/25 02:15) Diphenhydramine Injection (Benadryl Inje (08/15/25 02:15) Famotidine Injection (Pepcid Injection) (08/15/25 10:00) Dexamethasone Injection (Decadron Inject (08/15/25 10:00) Epinephrine Hcl Injection (08/15/25 02:15) Complement C4 (08/15/25 02:02) C1 Esterase Inhibitor (08/15/25 02:02) Vital Signs Date Time Temp Pulse Resp B/P (MAP) Pulse Ox O2 Delivery O2 Flow Rate FiO2 08/14/25 20:50 98.0 122 20 138/88 (105) 100 98.0 Assessment/Plan Assessment/Plan Assessment Anaphylaxis with facial angioedema and upper airway involvement, likely drug- induced (IV methamphetamine) * Recurrent facial and lip edema (x6 episodes). * Temporal relationship with IV methamphetamine (most episodes) and once with Suboxone; * Symptoms of throat tightness and mild dysphagia, mild chest tightness. * Objective facial and lip edema on exam; no tongue swelling or stridor; normal SpO?. Methamphetamine use disorder, severe, with IV use (chronic) * Active IV meth use; likely contributing trigger for allergic episodes and increasing risk for infectious and cardiovascular complications. * Important CC-level addiction diagnosis for risk stratification and resource utilization. Marijuana use (cannabis use disorder, ) Tobacco use disorder ( pack per day) History of Hepatitis C treated , reported sustained virologic response (resolved infection) Anxiety disorder Mild stress hyperglycemia (glucose 129 mg/dL) not diagnostic of diabetes; to be monitored. Past hydrocele / scrotal wall thickening / epididymal changes (remote ultrasound, currently asymptomatic) chronic, no active issue. Plan 1. Acute allergic reaction with facial angioedema and mild upper airway involvement * Level of care / disposition: * Admit to inpatient medicine with telemetry / step-down level (not ICU) for frequent airway assessments, continuous pulse oximetry, and rapid access to epinephrine and airway support if symptoms worsen. * Airway monitoring: * Continuous pulse oximetry. * q24 hour nursing airway checks (voice changes, drooling, inability to swallow, tongue swelling, use of accessory muscles, stridor). * Low threshold to escalate to ICU/Anesthesia/ENT if: * Progressive swelling, new tongue or cqeyf-sj-qyhah edema, * Stridor, respiratory distress, * Worsening dysphagia or inability to handle secretions. * Medications (initial inpatient orders): * Continue H1 antihistamine: * IV/PO diphenhydramine 2550 mg q6h for first 24 hours, then transition to non-sedating oral H1 (e.g., cetirizine 10 mg daily) as tolerated. * Continue H2 megan: * IV famotidine 20 mg q12h, transition to PO when tolerating. * Continue steroid: * Dexamethasone 10 mg IV q24h x 23 doses (or alternative: methylprednisolone 4060 mg IV q812h per local practice, then taper to PO). * Epinephrine PRN: * Epinephrine 0.3 mg IM (1:1000) PRN for any signs of progression to anaphylaxis: increased throat tightness, tongue swelling, stridor, hypotension, or respiratory distress. Nursing to notify MD STAT. * Diet: * Start with regular diet as tolerated; * Ensure able to swallow; if dysphagia worsens, consider NPO status and escalate level of care. * Labs / diagnostic evaluation: * Repeat CBC and CMP in the morning to monitor metabolic status. * C4 complement level and C1 esterase inhibitor level/function * Consults: * Allergy/Immunology consult (inpatient if available or expedited outpatient) for evaluation of: * Recurrent angioedema, * Possible drug-induced vs idiopathic vs hereditary angioedema, * ENT consult PRN if any concern arises for laryngeal edema or need for airway evaluation. * Education: * Counseled patient that recurrent episodes are potentially life- threatening; must avoid methamphetamine, 2. Methamphetamine use disorder, severe, IV use * Discussed risks of recurrent allergic reactions, infections, endocarditis, and cardiovascular events. * Screening for other infections/risk factors done (HIV, hepatitis panel negative . 3. Marijuana use & Tobacco use disorder * Brief counseling on smoking cessation and lung health; document tobacco use disorder. * Offered nicotine replacement therapy (patch/gum/lozenge) * Provided resources for outpatient smoking cessation program. 4. History of Hepatitis C (treated), Hepatitis A & B immune * No acute management needed during this admission. * Verify most recent LFTs on CMP; if abnormal, consider further workup. * Document as resolved chronic viral infection with prior treatment; note Hep A/B immunity as protective. 5. Anxiety disorder * Continue supportive care; validate symptoms; reassure while monitoring objective airway signs. 6. mild stress hyperglycemia Glucose 129 mg/dL: Non-fasting, mild; monitor. No evidence of diabetes at this time. Prophylaxis & Supportive Measures 1. VTE Prophylaxis: * Start Enoxaparin 40 mg SQ daily * Encourage early ambulation. 2. GI Prophylaxis: * Not strictly required in low-risk patient, but can continue famotidine, which also serves allergy management role. 3. Fall Precautions: * Given potential sedation from diphenhydramine/steroids and possible epinephrine, implement fall precautions, bed in low position, call light within reach. 4. Aspiration / Airway Precautions: * Head of bed elevated 30. * Monitor swallowing; if worsening dysphagia or drooling occurs, make NPO and escalate care. Case discussed in detail with the attending physician, including the clinical presentation, diagnostic workup, and comprehensive management plan. The patient was present for the discussion and demonstrated understanding of his condition and the proposed plan. Patient verbally consented to hospital admission and agreed to the outlined evaluation and treatment strategies, including imaging, labs, medication initiation, specialist consultations, and supportive care. Plan discussed with: Patient My Orders Orders - TABITHA HALE RESIDENT Procedure Category Date Status Time Admit ADMIT 08/14/25 Transmitted 23:37 Patient Condition ORDERS 08/14/25 Transmitted 23:37 Oxygen By Nasal RT 08/14/25 Transmitted Cannula 23:37 Code Status CODE 08/15/25 Transmitted 02:02 0.9% Ns 1000 Ml PHA 08/15/25 Transmitted 02:15 Oxygen Per Hour RT 08/15/25 Transmitted 02:02 Ondansetron Hcl PHA 08/15/25 Transmitted (Zofran) 02:15 Docusate Sodium PHA 08/15/25 Transmitted Capsule (Colace 02:15 Enoxaparin Sodium PHA 08/15/25 Transmitted (Lovenox) 10:00 Complete Blood Count LAB 08/16/25 Verified 04:00 Comprehensive LAB 08/16/25 Verified Metabolic Panel 04:00 Npo (Nothing By DIET 08/15/25 Transmitted Mouth) Diet Breakfast Condition: Unstable STACY 08/15/25 Transmitted 02:02 Acetaminophen Tablet PHA 08/15/25 Transmitted (Tylenol Tablet) 02:15 Diphenhydramine PHA 08/15/25 Transmitted Injection (Benadryl 02:15 Famotidine Injection PHA 08/15/25 Transmitted (Pepcid Injection) 10:00 Dexamethasone PHA 08/15/25 Transmitted Injection (Decadron 10:00 Epinephrine Hcl PHA 08/15/25 Transmitted Injection 02:15 Complement C4 LAB 08/15/25 Transmitted 02:02 C1 Esterase Inhibitor LAB 08/15/25 Transmitted 02:02 Date of Service: Aug 14, 2025 Billing Provider: GINA REAL MD Common Visit Codes: 54225-[id number] INP/OBS CARE (HIGH) Secondary Visit Codes: [id number] CARE PLAN 30 MINUTES TABITHA HALE RESIDENT Aug 15, 2025 02:16
[2025-08-15] MEDS ORDERED: FAMOTIDINE (10MG/ML) 2ML VL IV SCH (10:00)
[2025-08-15] MEDS ORDERED: ENOXAPARIN SOD 40 MG/0.4 ML SYRINGE SC SCH (10:00)
--- NOTE | 2025-08-15 11:01 | DVHDSRES ---
Discharge Summary Date of Admission Resident Creating Document: TABITHA HALE LAUREN RESIDENT Aug 14, 2025 at 23:37 Date of Discharge: Aug 15, 2025 Admitting Diagnosis Anaphylaxis with facial angioedema and upper airway involvement, likely drug- induced (IV methamphetamine) POA Labs/Diagnostic Data: Laboratory Results Test 08/14/25 13:10 White Blood Count 9.3 10^3/uL (4.4-10.8) Red Blood Count 4.72 10^6/uL (4.5-5.90) Hemoglobin 14.2 g/dL (13.5-17.5) Hematocrit 41.9 % (41.0-53.0) Mean Corpuscular Volume 88.7 fL (80.0-100.0) Mean Corpuscular Hemoglobin 30.1 pg (28.0-32.0) Mean Corpuscular Hemoglobin Concent 33.9 g/dL (32.0-36.0) Red Cell Distribution Width 14.3 % (11.8-14.3) Platelet Count 269 10^3/uL (140-450) Mean Platelet Volume 9.1 fL (6.9-10.8) Neutrophils (%) (Auto) 70.1 % (37.0-80.0) Lymphocytes (%) (Auto) 22.1 % (10.0-50.0) Monocytes (%) (Auto) 6.4 % (0.0-12.0) Eosinophils (%) (Auto) 1.1 % (0.0-7.0) Basophils (%) (Auto) 0.3 % (0.0-2.0) Neutrophils # (Auto) 6.6 10 ^3/uL (1.6-8.6) Lymphocytes # (Auto) 2.1 10 ^3/uL (0.4-5.4) Monocytes # (Auto) 0.6 10 ^3/uL (0-1.3) Eosinophils # (Auto) 0.1 10 ^3/uL (0-0.8) Basophils # (Auto) 0 10 ^3/uL (0-0.2) Nucleated Red Blood Cells 0.1 % Sodium Level 142 mmol/L (136-145) Potassium Level 3.6 mmol/L (3.5-5.1) Chloride Level 113 mmol/L (98-107) Carbon Dioxide Level 22 mmol/L (20-31) Anion Gap 7 (5-15) Blood Urea Nitrogen 9 mg/dL (9-23) Creatinine 1.08 mg/dL (0.700-1.30) Glomerular Filtration Rate Calc 89 mL/min (>90) BUN/Creatinine Ratio 8.3 (10.0-20.0) Serum Glucose 129 mg/dL (74-106) Calcium Level 9.1 mg/dL (8.7-10.4) Other Laboratory Tests 08/14/25 13:10 Brief Hx & Hospital Course: The patient is a 40-year-old male with history of hepatitis C (treated), anxiety, IV methamphetamine use, and prior episodes of facial swelling, who presents to the ED with acute facial swelling and throat tightness concerning for allergic reaction with angioedema. He reports using IV methamphetamine around 3:30 AM today. He went home and slept. When he woke up around 9:00 AM, he noticed swelling involving the left cheek and left side of his lips. He then ate eggs, after which the swelling rapidly worsened, spreading to involve both lips, left cheek up toward the infraorbital area, and later the right cheek/lower face. He describes the swelling as tight, watery, mildly painful, and itchy over the face. He also reports mild throat tightness and mild dysphagia (able to swallow saliva but feels tight in the throat) and very mild chest tightness, but denies brianna shortness of breath, noisy breathing, wheezing, stridor, drooling, or inability to handle secretions. He denies rash elsewhere on the body, tongue swelling, hand/foot/genital swelling, and denies nausea, vomiting, abdominal pain, or diarrhea. No fever or chills. This is his 6th episode of similar facial swelling: * 5 episodes occurred in temporal association with methamphetamine use (within the same day). * 1 episode occurred during incarceration after receiving Suboxone (buprenorphinenaloxone). * He was admitted once previously for similar swelling but reports no prior intubation or ICU stay. * Symptoms previously improved with steroids and diphenhydramine. He reports a known allergy to Keflex (cephalexin) . He is not on any OUSMANE inhibitor, ARB, or other chronic medications. He occasionally uses tramadol, ibuprofen, Tylenol, and diphenhydramine for pain or symptoms, but no daily medications. On ED presentation, nursing staff noted marked left hemifacial swelling and significant swelling of the right cheek and lower face, with lip swelling but no tongue swelling. He was tachycardic to ~609772 bpm, normotensive (BP ~138/88 mmHg), afebrile, and saturating 100% on room air. He complained of mild throat tightness and chest tightness but could speak in full sentences without stridor. He was treated emergently with: * IV dexamethasone * IV diphenhydramine (Benadryl) * IV famotidine (Pepcid) Following treatment, he reports the facial swelling has improved significantly (down to about one-third of what it was), and the throat tightness is still present but slightly better. No new symptoms have developed. Given: * Recurrent angioedema episodes (x6), * Association with IV methamphetamine and Suboxone exposure, * Concurrent throat tightness and mild dysphagia, * Current need for ongoing serial airway exams and risk of progression to laryngeal edema/anaphylaxis, the patient is being admitted from the ED to inpatient medicine (telemetry/step- down level) for close airway monitoring, continued antihistamine/steroid therapy, evaluation for underlying angioedema (including possible drug-induced vs idiopathic vs hereditary vs food-triggered), and addiction and allergy/immunology consultation. Patient was diagnosed with Anaphylaxis with facial angioedema and upper airway involvement likely drug-induced (IV methamphetamine),Methamphetamine use disorder, severe, with IV use (chronic) for which patient was still undergoing evaluation but despite explaining patient wants to leave AMA. Patient was advised about risks versus benefits, patient may have verbalized understanding despite of attempts patient left AMA. Condition at Discharge: Undetermined Final Diagnosis/Problems List Anaphylaxis with facial angioedema and upper airway involvement, likely drug-induced (IV methamphetamine) POA * Recurrent facial and lip edema (x6 episodes). * Temporal relationship with IV methamphetamine (most episodes) and once with Suboxone; * Symptoms of throat tightness and mild dysphagia, mild chest tightness. * Objective facial and lip edema on exam; no tongue swelling or stridor; normal SpO?. Methamphetamine use disorder, severe, with IV use (chronic) POA * Active IV meth use; likely contributing trigger for allergic episodes and increasing risk for infectious and cardiovascular complications. * Important CC-level addiction diagnosis for risk stratification and resource utilization. Marijuana use (cannabis use disorder, ) POA Tobacco use disorder ( pack per day) POA History of Hepatitis C treated , reported sustained virologic response (resolved infection) Anxiety disorder POA Mild stress hyperglycemia (glucose 129 mg/dL) not diagnostic of diabetes; to be monitored. POA Past hydrocele / scrotal wall thickening / epididymal changes (remote ultrasound, currently asymptomatic) chronic, no active issue. Discharge Disposition: AMA Discharge Instruct/Medications Scheduled Diphenhydramine Hcl (Benadryl Allergy), 25 MG PO BID Methylprednisolone (Medrol Dosepak), 4 MG PO UD Scheduled PRN Ibuprofen Micronized (Ibuprofen), 800 MG PO Q8HP PRN Tramadol Hcl (Tramadol Hcl), 50 MG PO Q8HP PRN Discharge Statement: "Patient was advised to return to the ER or call 911 if any headaches, dizziness, shortness of breath, chest pain, abdominal pain, bleeding, fevers, or worsening of medical condition. Patient was counseled about treatment plan, medications, possible side effects, patientverbalized understanding. All questions were answered to the best of my ability. This discharge took greater then 30 minutes in planning, reviewing documentation, counseling the patient, and discussing with other team members." ASSESSMENT ASSESSMENT Hospital Course The patient is a 40-year-old male with history of hepatitis C (treated), anxiety, IV methamphetamine use, and prior episodes of facial swelling, who presents to the ED with acute facial swelling and throat tightness concerning for allergic reaction with angioedema. He reports using IV methamphetamine around 3:30 AM today. He went home and slept. When he woke up around 9:00 AM, he noticed swelling involving the left cheek and left side of his lips. He then ate eggs, after which the swelling rapidly worsened, spreading to involve both lips, left cheek up toward the infraorbital area, and later the right cheek/lower face. He describes the swelling as tight, watery, mildly painful, and itchy over the face. He also reports mild throat tightness and mild dysphagia (able to swallow saliva but feels tight in the throat) and very mild chest tightness, but denies brianna shortness of breath, noisy breathing, wheezing, stridor, drooling, or inability to handle secretions. He denies rash elsewhere on the body, tongue swelling, hand/foot/genital swelling, and denies nausea, vomiting, abdominal pain, or diarrhea. No fever or chills. This is his 6th episode of similar facial swelling: * 5 episodes occurred in temporal association with methamphetamine use (within the same day). * 1 episode occurred during incarceration after receiving Suboxone (buprenorphinenaloxone). * He was admitted once previously for similar swelling but reports no prior intubation or ICU stay. * Symptoms previously improved with steroids and diphenhydramine. He reports a known allergy to Keflex (cephalexin) . He is not on any OUSMANE inhibitor, ARB, or other chronic medications. He occasionally uses tramadol, ibuprofen, Tylenol, and diphenhydramine for pain or symptoms, but no daily medications. On ED presentation, nursing staff noted marked left hemifacial swelling and significant swelling of the right cheek and lower face, with lip swelling but no tongue swelling. He was tachycardic to ~262977 bpm, normotensive (BP ~138/88 mmHg), afebrile, and saturating 100% on room air. He complained of mild throat tightness and chest tightness but could speak in full sentences without stridor. He was treated emergently with: * IV dexamethasone * IV diphenhydramine (Benadryl) * IV famotidine (Pepcid) Following treatment, he reports the facial swelling has improved significantly (down to about one-third of what it was), and the throat tightness is still present but slightly better. No new symptoms have developed. Given: * Recurrent angioedema episodes (x6), * Association with IV methamphetamine and Suboxone exposure, * Concurrent throat tightness and mild dysphagia, * Current need for ongoing serial airway exams and risk of progression to laryngeal edema/anaphylaxis, the patient is being admitted from the ED to inpatient medicine (telemetry/step- down level) for close airway monitoring, continued antihistamine/steroid therapy, evaluation for underlying angioedema (including possible drug-induced vs idiopathic vs hereditary vs food-triggered), and addiction and allergy/immunology consultation. Patient was diagnosed with Anaphylaxis with facial angioedema and upper airway involvement likely drug-induced (IV methamphetamine),Methamphetamine use disorder, severe, with IV use (chronic) for which patient was still undergoing evaluation but despite explaining patient wants to leave AMA. Patient was advised about risks versus benefits, patient may have verbalized understanding despite of attempts patient left AMA. Assessment Anaphylaxis with facial angioedema and upper airway involvement, likely drug- induced (IV methamphetamine) POA * Recurrent facial and lip edema (x6 episodes). * Temporal relationship with IV methamphetamine (most episodes) and once with Suboxone; * Symptoms of throat tightness and mild dysphagia, mild chest tightness. * Objective facial and lip edema on exam; no tongue swelling or stridor; normal SpO2. Methamphetamine use disorder, severe, with IV use (chronic) POA * Active IV meth use; likely contributing trigger for allergic episodes and increasing risk for infectious and cardiovascular complications. * Important CC-level addiction diagnosis for risk stratification and resource utilization. Marijuana use (cannabis use disorder, ) POA Tobacco use disorder (1 pack per day) POA History of Hepatitis C treated , reported sustained virologic response (resolved infection) Anxiety disorder POA Mild stress hyperglycemia (glucose 129 mg/dL) not diagnostic of diabetes; to be monitored. POA Past hydrocele / scrotal wall thickening / epididymal changes (remote ultrasound, currently asymptomatic) chronic, no active issue. TABITHA HALE RESIDENT Aug 15, 2025 11:01
== END 2025-08-15 01:15 | disposition left against medical advice (07) | DRG 811 ==
LOC: ER 11:21 → OVERFLOW 23:37
PROVIDERS: ATTEND Emergency Medicine
DX: T78.3XXA Angioneurotic edema, initial encounter (principal); F12.90 Cannabis use, unspecified, uncomplicated; F17.210 Nicotine dependence, cigarettes, uncomplicated; F41.9 Anxiety disorder, unspecified; F15.90 Other stimulant use, unspecified, uncomplicated; R73.9 Hyperglycemia, unspecified; Z53.29 Procedure and treatment not carried out because of patient's decision for other reasons; Z88.1 Allergy status to other antibiotic agents; Z71.6 Tobacco abuse counseling; Z86.19 Personal history of other infectious and parasitic diseases; T43.655A Adverse effect of methamphetamines, initial encounter; Y92.89 Other specified places as the place of occurrence of the external cause
CPT/HCPCS: 36415; 80048; 85025; 96374; 96375; 99291; G0378; J1100; J3490